=== PATIENT | female | born 1995 | race Caucasian/White ===

== ENCOUNTER 2019-03-19 08:08 | Emergency (ER) | payer BC, SELFPAY ==
[2019-03-19 08:24] VITALS: BP 126/76; PULSE 83; RESP 16; TEMP 36.8; O2SAT 100
--- NOTE | 2019-03-19 08:26 | ED.GENADULT ---
HPI - General Adult General Chief complaint: Upper Respiratory Infection Stated complaint: poss yeast infection Time Seen by Provider: 03/19/19 08:52 Source: patient Mode of arrival: ambulatory Limitations: no limitations History of Present Illness HPI narrative: 23-year-old female patient presents to the [facility] with complaints of a possible yeast infection. Patient states she has been on Cipro and clindamycin and just finished yesterday for an infected ingrown toe. Patient states that she gets yeast infections very easily and actually takes a probiotic daily due to this. Patient states that she has noticed some vaginal irritation but denies any discharge and denies any pain with urination. Patient denies any fevers, lower abdominal pain, nausea, vomiting or diarrhea. Patient states that this is typically how the symptom starts and that if she does not get it taken care of quickly it does escalate into worsening symptoms. Related Data Home Medications Medication Instructions Recorded Confirmed acyclovir 400 mg PO BID 03/19/19 03/19/19 citalopram 20 mg PO DAILY 03/19/19 03/19/19 norgestimate-ethinyl estradiol 1 tablet PO DAILY 03/19/19 03/19/19 [Estarylla] Allergies Allergy/AdvReac Type Severity Reaction Status Date / Time No Known Allergies Allergy Verified 03/19/19 08:37 Review of Systems Review of Systems: Narrative: CONSTITUTIONAL: Denies fever, chills, or sweats. EYES: Denies visual changes, redness, or discharge. ENT: Denies rhinorrhea, congestion, sore throat, or otalgia. CARDIOVASCULAR: Denies chest pain, palpitations, or edema. RESPIRATORY: Denies cough or dyspnea. GASTROINTESTINAL: Denies abdominal pain, nausea, vomiting, or diarrhea. GENITOURINARY: Denies dysuria or hematuria. Positive vaginal irritation that started yesterday. SKIN: Denies rash or itching. MUSCULOSKELETAL: Denies back pain, joint pain, or myalgia. NEUROLOGIC: Denies headache, numbness, or weakness. PSYCHIATRIC: Denies anxiety or depression. PMFSH Comments At the time of my signature I agree with nursing past medical history, surgical, social, and family history. There is no relevant family history pertinent to the presenting complaint. Exam Narrative: Exam Narrative: GENERAL: Well-appearing, well-nourished, and in no acute distress. HEAD: Normocephalic, atraumatic. EYES: PERRLA and EOMI. ENT: Nares clear, no rhinorrhea or epistaxis. Mucous membranes moist. NECK: Supple. No lymphadenopathy CHEST: Clear to auscultation. No respiratory distress. HEART: Regular rate and rhythm. No murmur heard. Normal peripheral pulses. ABDOMEN: Soft, nontender, nondistended, normal active bowel sounds. No CVA tenderness on percussion. : Deferred EXTREMITIES: Normal range of motion. No edema. SKIN: Warm, dry, no rash. NEURO: No focal deficits. Alert and oriented x3. Course Vital Signs Vital signs: Vital Signs Temperature 36.8 C 03/19/19 08:24 Pulse Rate 83 03/19/19 08:24 Respiratory Rate 16 03/19/19 08:24 Blood Pressure 126/76 03/19/19 08:24 Pulse Oximetry 100 03/19/19 08:24 Temperature 36.8 C 03/19/19 08:24 Pulse Rate 83 03/19/19 08:24 Respiratory Rate 16 03/19/19 08:24 Blood Pressure 126/76 03/19/19 08:24 Pulse Oximetry 100 03/19/19 08:24 Vital signs reviewed. Medical Decision Making Differential Diagnosis Differential Diagnosis: Differential diagnosis: Uncomplicated lower UTI, uncomplicated UTI, pyelonephritis. Yeast infection Discussed with patient that we will go ahead and test her urine to make sure she is not do a dip and if everything looks okay we will most likely discharge her with a antifungal for yeast infection. Patient verbalized understanding. Vital Signs Vital Signs: Vital Signs Temperature 36.8 C 03/19/19 08:24 Pulse Rate 83 03/19/19 08:24 Respiratory Rate 16 03/19/19 08:24 Blood Pressure 126/76 03/19/19 08:24 Pulse Oximetry 100 03/19/19 08:24
--- NOTE | 2019-03-19 09:05 | PC.NURSE ---
NO URINE CULTURE ORDERED PER PROVIDER
== END 2019-03-19 09:05 | disposition home or self-care (01) ==
PROVIDERS: Emergency Provider Nurse Practitioner Family
DX: B37.3 Candidiasis of vulva and vagina (principal)
CPT/HCPCS: 81003; 81025; 99213; G0463